=== PATIENT | female | born 1990 | race Caucasian/White ===

== ENCOUNTER 2017-02-26 23:21 | Outpatient (CLI) | payer MEDICAID ==
[~2017-02-26] VITALS: Ht 165.1 cm; Wt 70.0 kg
[~2017-02-26 23:21] MED LIST: AUGMENTIN 875-1 EACH PO; BACTRIM DS 8001 TA1 PO; BACTRIM DS 8001 TAB PO; BACTROBAN2% TP; BENADRYL25 M1 PO; BENTYL10 M1 PO; BENTYL10 MG PO; CLINDAMYCIN HC300 MG PO; CLINDAMYCIN300 MG PO; CORTISPORIN (GE10 M1 OT; FLEXERIL10 MG PO; HYDROXYZINE PAM50 MG PO; IBU-8800 MG PO; IBUPROFEN800 MG PO; MACROBID 100MG100 MG PO; MACROBID100 M3 PO; MEDROL 4MG. DOSE4 MG PO; MIRTAZAPINE15 M1 PO; NAPROSYN 500MG500 MG PO; NITROFURANTOIN100 M2 PO; NOMEDS; NOMEDS XX; OXYCODONE5 MG PO; PHENERGAN25 M3 PO; PRENATAL PLUS1 TA1 PO; PYRIDIUM 200MG200 MG PO; PYRIDIUM100 M1 PO; PYRIDIUM100 MG PO; SEPTRA DS 800 M1 TAB PO; SULFAMETHOXAZOL1 TA6 PO; TAMIFLU75 MG PO; TRAMADOL 50MG T50 MG PO; TYLENOL W/CODEI1 TA2 PO; ULTRACET 325 MG1 TAB PO; VIBRAMYCIN 100100 MG PO; VOLTAREN75 MG PO; ZANTAC 300300 MG PO
[2017-02-27 00:03] VITALS: BP 119/65
[2017-02-27 00:19] LABS: URINE BILIRUBIN - DIPSTICK NEGATIVE (NEG); URINE BLOOD 3+ (NEG)
[2017-02-27 00:21] LABS: URINE SQUAMOUS CELLS 50-100 #/hpf (0-5)
== END 2017-02-27 01:08 | disposition home or self-care (01) ==
LOC: OB 23:21 → OBOUT 23:21 → OB 23:29 → OBOUT 02-27 01:08
PROVIDERS: Obstetrics & Gynecology
DX: O26.92 Pregnancy related conditions, unspecified, second trimester (principal); Z3A.27 27 weeks gestation of pregnancy; N89.8 Other specified noninflammatory disorders of vagina

== ENCOUNTER 2017-03-19 13:41 | Emergency (ER) | payer MEDICAID ==
[~2017-03-19] VITALS: Ht 154.9 cm; Wt 69.9 kg
--- NOTE | 2017-03-19 14:53 | Emergency Room Report ---
History of Present Illness Time Seen by MD Moya Presenting Problem in Triage Pt arrived:Walked Presenting Problem:PT REPORTS MIGRAINE AND NOSE BLEEDS SINCE YESTERDAY. PT STATES NOSE BLEED HAS BEEN INTERMITTENT SINCE YESTERDAY. PT STATES HAS HAD BLOOD CLOTS COME OUT OF NOSTRILS. 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 N Clinical Suspician of Infection? N Mental Status: 1 - Regular (Normal Baseline) Sepsis Risk:Low Sepsis Risk Have you (or family members/close friends) recently traveled outside the [place]? N If Yes, where/when: Have you had exposure to infectious disease within the past month? N TB? Other? Specify: Source patient, RN notes reviewed Exam Limitations no limitations Comment Pt is 7months with her first and comes to the ED now with complaints of a migraine ELLIOTT for the past 3 days and a nose bleed from both nostrils bor the past 24hours. She says she has passed some clots through the right nostril and complains of pain in her ears as well. She has a history of Heroin abuse but says she has been clean for over a year now. She still smokes 1/2 ppd and denies ETOH use. VSare normal but NC=574/71 Cardiac Chest Pain Chest pain indicative of cardiac No ALLERGIES Coded Allergies: cefaclor (02/07/16) hydrocodone (02/07/16) Home Medications Reported Medications VIT#96/FERROUS FUM/FA ( Tablet) 1 TAB PO DAILY #30 History Medical History General CAD? No Angina: No SC: No Hypertension? No Hyperlipidemia? No CHF? No DVT? No PE? No COPD? No Asthma? No Anemia? No GERD? No Gastric ulcers? No GI Bleed? No Hernia? No Thyroid Problems? No Hypothyroidism? No CVA? No Seizures? No Diabetes? No Renal Insuffiency? No End Stage Renal Disease? No UTI? No Stones? No BPH? No GB Disease: Yes Nephritic Syndrome? No Asplenia? No Hepatitis? Yes Sickle Cell Disease? No Arthritis? No Migraines? No Cataracts? No Glaucoma? No MRSA? No HIV? No TB? No Anxiety? No Depression? No Cancer? No More? 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 Respiratory denies no symptoms reported Cardiovascular denies no symptoms reported Psychiatric/Neurological headache Physical Exam Vital Signs Vital Signs Date Time Temp Pulse Resp B/P Pulse O2 O2 Flow FiO2 Ox Delivery Rate 03/19 1457 86 14 106/72 96 03/19 1350 97.8 93 18 145/71 97 General Appearance normal appearance, WD/WN, no apparent distress Ear, Nose, Throat both nares are red with bleeding from the anterior nose on the left side. I do not see any bleeding on the right side but she says that has been the side she has passed clots from. I do not see any blood down the back of the throat either. Both ear canals are red and excoriated but the TM's ar normal Respiratory Status No: respiratory distress. Cardiovascular normal exam, regular rate/rhythm Nurse present during exam? 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 No Results/Orders Laboratory Tests 03/19/17 1559: Urine Color YELLOW, Urine Appearance CLOUDY, Urine pH 6.5, Ur Specific [place] < = 1.005, Urine Protein TRACE H, Urine Ketones NEGATIVE, Urine Blood 2+ H, Urine Nitrate NEGATIVE, Urine Bilirubin NEGATIVE, Urine Urobilinogen 0.2, Ur Leukocyte Esterase TRACE H, Urine RBC 5-10, Urine WBC 5-10, Ur Squamous Epith Cells 20-50, Urine Bacteria 2+, Urine Glucose NEGATIVE 03/19/17 1523: Sodium 137, Potassium 3.5, Chloride 105, Carbon Dioxide 24, BUN 8, Creatinine 0.5 L, Estimated Creat Clear 191, Estimated GFR (MDRD) 152, Glucose 104, Calcium 8.3 L, Total Bilirubin 0.3, AST 16, ALT 18, Alkaline Phosphatase 112, Total Protein 6.2 L, Albumin 2.3 L, Globulin 3.9 H, Albumin/Globulin Ratio 0.6 L, PT 9.4, INR 0.87 L, APTT 28.1, WBC 7.7, RBC 3.56 L, Hgb 10.9 L, Hct 32.2 L, MCV 90.4, RDW 13.6, Plt Count 193, MPV 8.7, Gran % 67.6, Gran # 5.2, Lymphocytes % 25.7, Monocytes % 5.1, Eosinophils % 1.3, Basophils % 0.2, Lymphocytes # 2.0, Monocytes # 0.4, Eosinophils # 0.1, Basophils # 0.0, PUBS MCHC 34.0, MCH 30.7 Current Medication Orders Sig/Ángel Start time Last Medication Dose Route Stop Time Status Admin Amoxicillin 500 MG ONCE ONE 03/19 151 DCr 03/19 PO 03/19 151 151 Promethazine HCl 25 MG ONCE ONE 03/19 151 DC 03/19 PO 03/19 151 1516 Promethazine HCl 0 .STK-MED ONE 03/19 151 DC PO Amoxicillin 0 .STK-MED ONE 03/19 151 DCr PO Orders Procedure Date/time Status CULTURE, URINE 03/19 155 Active URINALYSIS/COMPLETE 03/19 1511 Complete PROTIME/PARTIAL PROTIME 03/19 1511 Complete CBC WITH AUTO DIFF 03/19 1511 Complete CHEM 12 PROFILE 03/19 1511 Complete Departure Departure Time of Disposition 1634 Disposition DC Home or Self Care(routine) Clinical Impression Primary Impression: Epistaxis Secondary Impressions: Hypoalbuminemia Normal intrauterine in third trimester Sinusitis Qualifiers: Sinusitis location: maxillary Chronicity: acute Recurrence: not specified as recurrent Qualified Code: J01.00 - Acute maxillary sinusitis, unspecified Condition STABLE Referrals Colby CRUZ,Hernandez Garza Patient Instructions DI for Sinusitis, Sinusitis, Sinusitis (Alternative Therapy ) Additional Instructions Use medicines as directed and followup with Dr. Farr for further evaluation of headache and Discharge Counseling Counseled pt/family regarding diagnosis, test results, medications/RX, home care, follow up needs Prescriptions Current Visit Scripts MUPIROCIN 2% (Bactroban Oint) 1 GM TP DAILY #1 TUBE Amoxicillin (Amoxicillin 500MG) 500 MG PO TID #30 CAP ED Critical Care Critical Care No If Critical Care minutes are documented, the time involved in the performance of seperately reportable procedures was not counted toward critical care time documented. I directly delivered medical care to this critically ill and/or injured patient. Timely evaluation and treatment was necessary to address the significant organ system(s) dysfunction present in this patient. at [id number]
--- NOTE | 2017-03-19 14:53 | Emergency Room Report ---
History of Present Illness Time Seen by MD Moya Presenting Problem in Triage Pt arrived:Walked Presenting Problem:PT REPORTS MIGRAINE AND NOSE BLEEDS SINCE YESTERDAY. PT STATES NOSE BLEED HAS BEEN INTERMITTENT SINCE YESTERDAY. PT STATES HAS HAD BLOOD CLOTS COME OUT OF NOSTRILS. 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 N Clinical Suspician of Infection? N Mental Status: 1 - Regular (Normal Baseline) Sepsis Risk:Low Sepsis Risk Have you (or family members/close friends) recently traveled outside the [place]? N If Yes, where/when: Have you had exposure to infectious disease within the past month? N TB? Other? Specify: Source patient, RN notes reviewed Exam Limitations no limitations Comment Pt is 7months with her first and comes to the ED now with complaints of a migraine ELLIOTT for the past 3 days and a nose bleed from both nostrils bor the past 24hours. She says she has passed some clots through the right nostril and complains of pain in her ears as well. She has a history of Heroin abuse but says she has been clean for over a year now. She still smokes 1/2 ppd and denies ETOH use. VSare normal but II=603/71 Cardiac Chest Pain Chest pain indicative of cardiac No ALLERGIES Coded Allergies: cefaclor (02/07/16) hydrocodone (02/07/16) Home Medications Reported Medications VIT#96/FERROUS FUM/FA ( Tablet) 1 TAB PO DAILY #30 History Medical History General CAD? No Angina: No VT: No Hypertension? No Hyperlipidemia? No CHF? No DVT? No PE? No COPD? No Asthma? No Anemia? No GERD? No Gastric ulcers? No GI Bleed? No Hernia? No Thyroid Problems? No Hypothyroidism? No CVA? No Seizures? No Diabetes? No Renal Insuffiency? No End Stage Renal Disease? No UTI? No Stones? No BPH? No GB Disease: Yes Nephritic Syndrome? No Asplenia? No Hepatitis? Yes Sickle Cell Disease? No Arthritis? No Migraines? No Cataracts? No Glaucoma? No MRSA? No HIV? No TB? No Anxiety? No Depression? No Cancer? No More? 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 Respiratory denies no symptoms reported Cardiovascular denies no symptoms reported Psychiatric/Neurological headache Physical Exam Vital Signs Vital Signs Date Time Temp Pulse Resp B/P Pulse O2 O2 Flow FiO2 Ox Delivery Rate 03/19 1457 86 14 106/72 96 03/19 1350 97.8 93 18 145/71 97 General Appearance normal appearance, WD/WN, no apparent distress Ear, Nose, Throat both nares are red with bleeding from the anterior nose on the left side. I do not see any bleeding on the right side but she says that has been the side she has passed clots from. I do not see any blood down the back of the throat either. Both ear canals are red and excoriated but the TM's ar normal Respiratory Status No: respiratory distress. Cardiovascular normal exam, regular rate/rhythm Nurse present during exam? 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 No Results/Orders Laboratory Tests 03/19/17 1559: Urine Color YELLOW, Urine Appearance CLOUDY, Urine pH 6.5, Ur Specific [place] < = 1.005, Urine Protein TRACE H, Urine Ketones NEGATIVE, Urine Blood 2+ H, Urine Nitrate NEGATIVE, Urine Bilirubin NEGATIVE, Urine Urobilinogen 0.2, Ur Leukocyte Esterase TRACE H, Urine RBC 5-10, Urine WBC 5-10, Ur Squamous Epith Cells 20-50, Urine Bacteria 2+, Urine Glucose NEGATIVE 03/19/17 1523: Sodium 137, Potassium 3.5, Chloride 105, Carbon Dioxide 24, BUN 8, Creatinine 0.5 L, Estimated Creat Clear 191, Estimated GFR (MDRD) 152, Glucose 104, Calcium 8.3 L, Total Bilirubin 0.3, AST 16, ALT 18, Alkaline Phosphatase 112, Total Protein 6.2 L, Albumin 2.3 L, Globulin 3.9 H, Albumin/Globulin Ratio 0.6 L, PT 9.4, INR 0.87 L, APTT 28.1, WBC 7.7, RBC 3.56 L, Hgb 10.9 L, Hct 32.2 L, MCV 90.4, RDW 13.6, Plt Count 193, MPV 8.7, Gran % 67.6, Gran # 5.2, Lymphocytes % 25.7, Monocytes % 5.1, Eosinophils % 1.3, Basophils % 0.2, Lymphocytes # 2.0, Monocytes # 0.4, Eosinophils # 0.1, Basophils # 0.0, PUBS MCHC 34.0, MCH 30.7 Current Medication Orders Sig/Ángel Start time Last Medication Dose Route Stop Time Status Admin Amoxicillin 500 MG ONCE ONE 03/19 151 DCr 03/19 PO 03/19 151 151 Promethazine HCl 25 MG ONCE ONE 03/19 151 DC 03/19 PO 03/19 151 1516 Promethazine HCl 0 .STK-MED ONE 03/19 151 DC PO Amoxicillin 0 .STK-MED ONE 03/19 151 DCr PO Orders Procedure Date/time Status CULTURE, URINE 03/19 155 Active URINALYSIS/COMPLETE 03/19 1511 Complete PROTIME/PARTIAL PROTIME 03/19 1511 Complete CBC WITH AUTO DIFF 03/19 1511 Complete CHEM 12 PROFILE 03/19 1511 Complete Departure Departure Time of Disposition 1634 Disposition DC Home or Self Care(routine) Clinical Impression Primary Impression: Epistaxis Secondary Impressions: Hypoalbuminemia Normal intrauterine in third trimester Sinusitis Qualifiers: Sinusitis location: maxillary Chronicity: acute Recurrence: not specified as recurrent Qualified Code: J01.00 - Acute maxillary sinusitis, unspecified Condition STABLE Referrals Colby CRUZ,Hernandez Garza Patient Instructions DI for Sinusitis, Sinusitis, Sinusitis (Alternative Therapy ) Additional Instructions Use medicines as directed and followup with Dr. Farr for further evaluation of headache and Discharge Counseling Counseled pt/family regarding diagnosis, test results, medications/RX, home care, follow up needs Prescriptions Current Visit Scripts MUPIROCIN 2% (Bactroban Oint) 1 GM TP DAILY #1 TUBE Amoxicillin (Amoxicillin 500MG) 500 MG PO TID #30 CAP ED Critical Care Critical Care No If Critical Care minutes are documented, the time involved in the performance of seperately reportable procedures was not counted toward critical care time documented. I directly delivered medical care to this critically ill and/or injured patient. Timely evaluation and treatment was necessary to address the significant organ system(s) dysfunction present in this patient. at 8507
[2017-03-19 15:43] LABS: LYMPH % 25.7 % (10-50.0)
[2017-03-19 15:44] LABS: HEMOGLOBIN 10.9 g/dL (12.2-16.2)
[2017-03-19 16:03] LABS: URINE BILIRUBIN - DIPSTICK NEGATIVE (NEG); URINE BLOOD 2+ (NEG)
[2017-03-19 16:13] LABS: URINE SQUAMOUS CELLS 20-50 #/hpf (0-5)
[2017-03-19 16:41] VITALS: BP 122/76
--- OUTSIDE RECORDS SUMMARY | 2017-03-29 21:55 | External Medical Summary Rpt ---
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 18:40 Manual MEAN 2 7.2 fl 7.4-10. complet PLATELE 013 4 ed T 18:40 VOLUME Granulo 05-30-2 51.0 % 37.0-80 complet cytes 013 .0 ed Fr Bld 18:40 Auto LYMPH % 12-2 39.6 % 10-50.0 complet 013 ed 18:40 Monocyt 12-2 6.8 % 1.7-9.3 complet es Fr 013 ed Bld 18:40 Auto Eosinop -12-2 2.2 % 0.1-12. complet hil Fr 013 0 ed Bld 18:40 Auto Basophi -12-2 0.3 % 0.1-2.0 complet ls Fr 013 ed Bld 18:40 Auto Granulo 12-12-2 3.8 1.8-7.8 complet cytes # 013 K/mm3 ed Bld 18:40 Auto Lymphoc -12-2 3.0 0.7-4.5 complet ytes Fr 013 K/mm3 ed Bld 18:40 Auto Monocyt 12-12-2 0.5 0.1-1.0 complet es # 013 K/mm3 ed Bld 18:40 Auto Eosinop 12-12-2 0.2 0.0-0.4 complet hil # 013 K/mm3 ed Bld 18:40 Auto Basophi 12-12-2 0.0 0-0.2 complet ls # 013 K/MM3 ed Bld 18:40 Auto B-HCG Ur Ql (05-30-2013 17:50) B-HCG 12-12-2 POSITIV NEG complet Ur Ql 013 E ed 17:50 URINALYSIS/COMPLETE (05-30-2013 17:50) URINE 12-12-2 YELLOW YELLOW complet COLOR 013 ed 17:50 URINE 12-12-2 CLEAR CLEAR complet APPEARA 013 ed NCE 17:50 URINE 12-12-2 NEGATIV NEG complet GLUCOSE 013 E ed - 17:50 DIPSTIC K URINE 12-12-2 NEGATIV NEG complet BILIRUB 013 E ed IN - 17:50 DIPSTIC K URINE 12-12-2 NEGATIV NEG complet KETONE 013 E mg/dL ed 17:50 URINE 12-12-2 1.025 1.005-1 complet SPECIFI 013 UNK .030 ed C 17:50 GRAVITY URINE 12-12-2 NEGATIV NEG complet BLOOD 013 E ed 17:50 URINE 12-12-2 6.5 UNK 5.0-8.5 complet PH 013 ed 17:50 URINE 12-12-2 NEGATIV NEG complet PROTEIN 013 E mg/dL ed - 17:50 DIPSTIC K URINE 12-12-2 0.2 NEG complet UROBILI 013 E.U./dL ed NOGEN - 17:50 DIPSTIC K URINE 12-12-2 NEGATIV NEG complet NITRATE 013 E ed - 17:50 DIPSTIC K URINE 12-12-2 3+ NEG complet LEUK 013 ed ESTERAS 17:50 E URINE 12-12-2 3-5 0 complet RBC 013 rbc/hpf ed 17:50 URINE 12-12-2 20-50 O complet WBC 013 wbc/hpf ed 17:50 URINE 12-12-2 10-20 0-5 complet SQUAMOU 013 #/hpf ed S CELLS 17:50 URINE 12-12-2 3+ O complet BACTERI 013 ed A 17:50 CHLAMYDIA AND GONORRHEA TESTING (01-15-2013 11:00) Chlamyd POSITIV complet ia 013 E ed trachom 11:00 atis rRNA [Presen ce] in Unspeci fied specime n by Probe & target amplifi cation method Neisser NEGATIV complet ia 013 E ed gonorrh 11:00 oeae rRNA [Presen ce] in Unspeci fied specime n by Probe & target amplifi cation method CHLAMYDIA AND GONORRHEA TESTING (01-15-2013 11:00) COLLECT PATIENT complet OR 013 /J.MOSL ed 11:00 EY RN ETHNICI WHITE, complet TY 013 NON-HIS ed 11:00 PANIC KIT complet EXPIRAT 013 013 ed ION 11:00 DATE SYMPTOM NO complet S 013 ed 11:00 REASON REVISIT complet FOR 013 /ANNUAL ed REQUEST 11:00 FAMILY PLANNIN G VISIT SPECIME URINE complet N 013 ed SOURCE 11:00 PREGNAN NO complet T 013 ed 11:00 CHART NA complet NUMBER 013 ed 11:00 Chlamyd Pending complet ia ed trachom 11:00 atis rRNA [Presen ce] in Unspeci fied specime n by Probe & target amplifi cation method Neisser Pending complet ia 013 ed gonorrh 11:00 oeae rRNA [Presen ce] in Unspeci fied specime n by Probe & target amplifi cation method B-HCG Ur Ql (08-08-2012 20:45) B-HCG 2 NEGATIV NEG complet Ur Ql 013 E ed 20:45 URINALYSIS/COMPLETE (08-08-2012 20:45) URINE YELLOW YELLOW complet COLOR 013 ed 20:45 URINE 08-08-2 CLEAR CLEAR complet APPEARA 013 ed NCE 20:45 URINE 08-08-2 NEGATIV NEG complet GLUCOSE 013 E ed - 20:45 DIPSTIC K URINE 08-08-2 NEGATIV NEG complet BILIRUB 013 E ed IN - 20:45 DIPSTIC K URINE 08-08-2 NEGATIV NEG complet KETONE 013 E mg/dL ed 20:45 URINE 08-08-2 1.015 1.005-1 complet SPECIFI 013 UNK .030 ed C 20:45 GRAVITY URINE 08-08-2 NEGATIV NEG complet BLOOD 013 E ed 20:45 URINE 08-08-2 7.5 UNK 5.0-8.5 complet PH 013 ed 20:45 URINE 08-08-2 NEGATIV NEG complet PROTEIN 013 E mg/dL ed - 20:45 DIPSTIC K URINE 08-08-2 4.0 NEG complet UROBILI 013 E.U./dL ed NOGEN - 20:45 DIPSTIC K URINE 02-20-2 NEGATIV NEG complet NITRATE 013 E ed - 20:45 DIPSTIC K URINE 02-20-2 2+ NEG complet LEUK 013 ed ESTERAS 20:45 E URINE 02-20-2 3-5 0 complet RBC 013 rbc/hpf ed 20:45 URINE 02-20-2 5-10 O complet WBC 013 wbc/hpf ed 20:45 URINE 02-20-2 5-10 0-5 complet SQUAMOU 013 #/hpf ed S CELLS 20:45 URINE 02-20-2 3+ O complet BACTERI 013 ed A 20:45 URINE 02-20-2 OCC OCC complet MUCUS 013 ed 20:45 CHLAMYDIA AND GONORRHEA TESTING (01-31-2012 16:00) Chlamyd NEGATIV complet ia 012 E ed trachom 16:00 atis rRNA [Presen ce] in Unspeci fied specime n by Probe & target amplifi cation method Neisser NEGATIV complet ia 012 E ed gonorrh 16:00 oeae rRNA [Presen ce] in Unspeci fied specime n by Probe & target amplifi cation method CHLAMYDIA AND GONORRHEA TESTING (01-31-2012 16:00) COLLECT NA complet OR 012 ed 16:00 ETHNICI WHITE, complet TY 012 NON-HIS ed 16:00 PANIC KIT 3013 complet EXPIRAT 012 ed ION 16:00 DATE SYMPTOM NO complet S 012 ed 16:00 REASON REVISIT complet FOR 012 /ANNUAL ed REQUEST 16:00 FAMILY PLANNIN G VISIT SPECIME URINE complet N 012 ed SOURCE 16:00 PREGNAN NO complet T 012 ed 16:00 CHART 402-45- complet NUMBER 012 8200 ed 16:00 Chlamyd Pending complet ia 012 ed trachom 16:00 atis rRNA [Presen ce] in Unspeci fied specime n by Probe & target amplifi cation method Neisser Pending complet ia 012 ed gonorrh 16:00 oeae rRNA [Presen ce] in Unspeci fied specime n by Probe & target amplifi cation method Procedures Procedure DOS Code Location Performer Comment [place] PREG 86150 [facility] W/DETAIL INC INC EBONI 1ST GESTATION US PREG 36214 [facility] UTERUS 7 MEDICAL AFTER 1ST IMAGING TRIMEST ASS GESTATION DRUG TEST 71445 [facility] BERMUDE[facility] PRSMV 7 PHYSICIAN QUAL DIR S GROUP OPTICAL OBS PER DAY DRUG TEST 10865 [facility] PRSMV 7 PHYSICIAN QUAL DIR S GROUP OPTICAL OBS PER DAY DRUG TEST 48379 [facility] BER[facility] PRSMV 7 PHYSICIAN QUAL DIR S GROUP OPTICAL OBS PER DAY CYTP 53640 [facility] CERV[facility]/ 7 [facility] VAGINAL REQ INTERP PHYSICIAN CYTP C/V 53451 [facility] AUTO THIN 7 LLC LYR PREPJ SCR MNL RESCR PHYS US PREG 42049 [facility] UTERUS 7 MEDICAL REAL TIME IMAGING W/[place] [address] [facility] TRANSVAGI 7 [facility] NAL INC INC URNLS DIP 60218 [facility] 7 [facility] STICK/TAB INC INC LET REAGENT AUTO MICROSCOP Y CULTURE 05341 [facility] BACTERIAL 7 [facility] INC INC QUANTTATI VE COLONY COUNT URINE URINE 14519 [facility] 7 [facility] TEST INC INC VISUAL COLOR CMPRSN METHS US PREG 94237 [place] [facility] UTERUS 7 MEDICAL REAL TIME IMAGING W/IMAGE ASS DCMTN TRANSVAG URINE 50712 [facility] AIDAN 7 PHYSICIAN TEST S GROUP VISUAL COLOR CMPRSN METHS DRUG TEST 26987 [facility] BER[facility] PRSMV 7 PHYSICIAN QUAL DIR S GROUP OPTICAL OBS PER DAY URINE 06465 [facility] 7 [facility] TEST INC INC VISUAL COLOR CMPRSN METHS BLOOD 02357 [facility] COUNT 7 [facility] COMPLETE INC INC AUTO&AUTO DIFRNTL WBC GONADOTRO 52918 [facility] PIN 7 [facility] CHORIONIC INC INC QUANTITAT ERNESTINE URNLS DIP 32169 [facility] 7 [facility] STICK/TAB INC INC LET REAGENT AUTO MICROSCOP Y AMB A0427 [facility] SERVICE 6 [facility] EMERGENC[facility] EMS EMS TRANSPORT LEVEL 1 GROUND A0425 [facility] MILEAGE 6 [facility] STAT[facility] EMS EMS MILE BLOOD 22387 [facility] COUNT 6 [facility] COMPLETE INC INC AUTO&AUTO DIFRNTL WBC IRON 05332 [facility] BINDING 6 [facility] [place] [address] [facility] FERRITIN 6 [facility] INC INC COMPREHEN 83309 [facility] SIVE 6 [facility] [place] [address] [facility] IRON 6 [place] [address] [facility] FREE 6 [facility] [place] [address] [facility] THYROID 6 [facility] STIMULATI INC INC NG HORMONE TSH IADNA 01107 [facility] DEPT [facility] DEPT GONORRHOE SERGEY SERGEY AE AMPLIFIED PROBE TQ CONTRACEP A4269 [facility] TIVE [facility] SUPPLY [facility] DEPT [facility] DEPT SPERMICID SERGEY SERGEY E EACH URINE 06746 [facility] TEST TH DEPT TH DEPT VISUAL SERGEY SERGEY COLOR CMPRSN METHS IADNA 21941 [facility] CHLAMYDIA [facility] TH DEPT TH DEPT TRACHOMAT SERGEY SERGEY IS AMPLIFIED PROBE TQ CONTRACEP A4267 [facility] TIVE 6 [facility] SUPPLY [facility] DEPT [facility] DEPT CONDOM SERGEY SERGEY MALE EACH CONTRACEP S4993 [facility] TIVE [facility] DE[facility] DEPT SERGEY SERGEY CONTROL ECG 23104 [facility] ROUTINE 6 [facility] ECG INC INC W/LEAST 12 LDS TRCG ONLY W/O I&R THER 25572 [facility] PROPH/DX 6 [facility] NJX IV INC INC PUSH SINGLE/1S T SBST/DRUG ECG 45251 [facility] FLOREZ ROUTINE 6 [facility] W/LEAST P 12 LDS I&R ONLY THERAPEUT 62875 [facility] IC 6 [facility] INJECTION INC [place] [address] [facility] TROPONIN 6 [facility] QUANTITAT INC INC ERNESTINE RADIOLOGI 53065 [place] [facility] ALL C EXAM 6 MEDICAL CHEST 2 IMAGING VIEWS ASS FRONTAL&L ATERAL BLOOD 45957 [facility] COUNT 6 [facility] COMPLETE INC INC AUTO&AUTO DIFRNTL WBC CREATINE 02131 [facility] KINASE 6 [facility] TOTAL INC INC COMPREHEN 20539 [facility] SIVE 6 [facility] METABOLIC INC INC PANEL CREATINE 93580 [facility] KINASE MB 6 [facility] FRACTION INC INC ONLY ECG 81211 TON[facility] SILVERIO ROUTINE 6 [facility] ECG SERV W/LEAST FOUNDATIO 12 LDS N I&R ONLY RADIOLOGI 49119 [facility] EXAM 6 Y OF CHEST 2 [place] VIEWS I PHY FRONTAL&L ATERAL LAPAROSCO 17475 [facility] PY SURG 5 R JERILYN R JERILYN CHOLECYST ECTOMY ANES 08002 [place] [facility] ANT INTRAPERI 5 ANESTHESI TONEAL A GROUP UPPER PS ABDOMEN W/LAPS NOS LEVEL III 75003 [facility] MY[facility] SURG 5 [facility] PATHOLOGY GROSS&[place] [address] [facility] AMYLASE 5 [facility] INC INC INJECTION J2405 [facility] 5 [facility] ONDANSETR INC INC ON HCL PER 1 MG COMPREHEN 59525 [facility] SIVE 5 [facility] METABOLIC INC INC PANEL BLOOD 42893 [facility] COUNT 5 [facility] COMPLETE INC INC AUTO&[place] [address] [facility] LIPASE 5 [place] [address] [facility] INFUSION 5 [facility] THERAPY/P INC INC ROPHYLAXI S /DX 1ST TO 1 HR THERAPEUT 71576 [facility] IC 5 [facility] INJECTION [place] [address] RU[facility] ABDOMINAL 5 [facility] REAL INC INC TIME W/IMAGE LIMITED RADIOLOGI 25181 [facility] EX[facility] 5 MEDICAL MOJGAN CHEST 2 IMAGING VIEWS ASS FRONTAL&L ATERAL RADIOLOGI 04702 [place] [facility] C EXAM 5 MEDICAL CE CHEST 2 IMAGING VIEWS ASS FRONTAL&[place] [address] [facility] BERMUDEZ TRANSVAGI 4 [place] [address] [facility], KARINA SURG 4 [facility] ALL[facility] PATHOLOGY GROSS&CHASE ROSCOPIC EXAM [place] PREG 85978 [facility] UTERUS 4 JOSÉ JOSÉ REAL TIME W/IMAGE DCMTN TRANSVAG CYTP 33408 [facility] MYERS CERVICAL/ 4 JUAN JUAN VAGINAL REQ INTERP PHYSICIAN CYTP C/V 11131 [facility] AUTO THIN 4 JUAN JUAN LYR PREPJ SCR MNL RESCR PHYS IADNA 88016 [facility] CHLAMYDIA 4 JUAN JUAN TRACHOMAT IS AMPLIFIED PROBE TQ URINE 21579 [facility] B[facility] 4 JOSÉ JOSÉ TEST VISUAL COLOR CMPRSN METHS IADNA 29101 [facility] NEISSERIA 4 JUAN JUAN GONORRHOE AE AMPLIFIED PROBE TQ RADEX 85370 [facility] HAND 1 [facility] MINIMUM 3 INC INC VIEWS URINE 21264 [facility] 1 [employer] [facility] C[facility] CENTER VISUAL COLOR CMPRSN METHS DME A9900 [facility] SUP/ACCES 1 [facility] S/SRV-COM [facility] ZIYAD/OTH HCPCS CONTRACEP S4993 [facility] TIVE 1 [facility] CONTROL CONTRACEP A4267 [facility] TIVE 1 [facility] SUPPLY CENTER CENTER CONDOM MALE EACH URINE 12695 [facility] YEH 1 [facility] HE[facility] TEST CENTER CENTER VISUAL COLOR CMPRSN METHS URINE 99332 [facility] LOPEZ 1 [facility] SO DIDI TEST INC VISUAL COLOR CMPRSN METHS RADIOLOGI 28186 [facility] C EXAM 1 [facility] CHEST 2 INC INC VIEWS FRONTAL&L ATERAL URNLS DIP 22190 [facility] 1 [facility] STICK/TAB INC INC LET REAGENT AUTO MICROSCOP Y CULTURE 69746 [facility] LOPEZ BACTERIAL 1 [facility] SO DIDI INC QUANTTATI VE COLONY COUNT URINE RADEX 00842 [facility] WRIST 1 [facility] COMPLETE INC INC MINIMUM 3 VIEWS URINE 08375 [facility]H 1 [facility] TEST INC INC VISUAL COLOR CMPRSN METHS RADEX 66760 [facility] SHOULDER 1 [facility] COMPLETE INC INC MINIMUM 2 VIEWS BLOOD 39694 [facility] COUNT 1 [facility] COMPLETE INC INC AUTO&AUTO DIFRNTL WBC URINE 65990 [facility]H 1 [facility] TEST INC INC VISUAL COLOR CMPRSN METHS RADIOLOGI 58721 [facility] C EXAM 1 [facility] CHEST 2 INC INC VIEWS FRONTAL&L ATERAL FIBRIN 10177 [facility] DGRADJ 1 [facility] PRODUCTS INC INC D-DIMER QUAL/SEMI DOMITILA IAADI 21189 [facility] INFLUENZA 1 [facility] B VIRUS INC INC IAADI 61395 [facility]H INFFLUENZ 1 [facility] A A VIRUS INC INC COMPREHEN 66486 [facility] SIVE 1 [facility] METABOLIC INC INC PANEL ANTIBODY 64297 LAB ALYSSA LAB ALYSSA BORRELIA 0 [facility] [employer] [employer] LYME DISEASE BLOOD 15574 LAB ALYSSA LAB ALYSSA COUNT 0 [employer] [employer] COMPLETE [employer]ING AUTO&AUTO DIFRNTL WBC URINE 16050 [facility] 0 [facility] TEST INC INC VISUAL COLOR CMPRSN METHS RADIOLOGI 24104 [facility] C EXAM 0 [facility] CHEST 2 INC INC VIEWS FRONTAL&L ATERAL ECG 62217 [facility] SMITH [facility] W/LEAST P 12 LDS I&R ONLY ECG 29345 [facility] ROUTINE 0 [facility] ECG INC INC W/LEAST 12 LDS TRCG ONLY W/O I&R CYTP 52814 PATHOLOGY PATHOLOGY CERV/VAG 9 & & AUTO THIN CYTOLOGY CYTOLOGY LAYER LAB LAB PREP MNL SCREEN CYTP 10475 PATHOLOGY PATHOLOGY CERVICAL/ 9 & & VAGINAL CYTOLOGY CYTOLOGY REQ LAB LAB INTERP PHYSICIAN Encounters Encounter Start End Date Code Location Performer Type Date OFFICE 65356 [facility] A[facility]AN MAJOREN 7 7 PHYSICIAN T VISIT S GROUP 15 MINUTES HOSPITAL RUBA - 7 7 [facility] OUTPATIEN INC T OFFICE 04711 [facility] A[facility] MARSHALL 7 7 PHYSICIAN T VISIT S GROUP 15 MINUTES EMERGENCY 60534 [facility] 7 7 PAULA DEPARTMEN EMERGENCY T VISIT PHYS MODERATE SEVERITY OFFICE 61029 [facility] [place] 7 7 PHYSICIAN T VISIT S GROUP 15 MINUTES OFFICE 47668 [facility] 7 7 [facility] T VISIT 5 INC MINUTES OFFICE 51582 RIK MAJOREN 7 7 PHYSICIAN T VISIT S, PLLC 25 MINUTES HOSPITAL RUBA - 7 7 [facility] OUTPATIEN INC T OFFICE 38261 [facility] A[facility] MAJOREN 7 7 PHYSICIAN T VISIT S GROUP 15 MINUTES EMERGENCY 34465 [facility] 7 7 [facility] DEPARTMEN INC T VISIT LOW/MODER SEVERITY EMERGENCY 78471 RIK BECKER 7 7 PHYSICIAN DEPARTMEN S, PLLC T VISIT HIGH/URGE NT SEVERITY HOSPITAL RUBA - 7 7 [facility] OUTPATIEN INC T HOSPITAL RUBA - 7 7 [facility] OUTPATIEN INC T OFFICE 58084 [facility] BERMUDEZ OUTPATIEN 7 7 PHYSICIAN T VISIT S GROUP 25 MINUTES OFFICE 57898 [facility] STONE OUTPATIEN 7 7 PHYSICIAN T VISIT S GROUP 15 MINUTES EMERGENCY 81470 RIK BARONE 7 7 PHYSICIAN [facility] HIGH/URGE NT SEVERITY HOSPITAL RUBA - 7 7 [facility] OUTPATIEN INC T EMERGENCY 49764 RUBA 7 7 [facility] T VISIT LOW/MODER SEVERITY EMERGENCY 90029 [facility] 6 6 PAULA [facility] EMERGENCY T VISIT PHYS HIGH/URGE NT SEVERITY HOSPITAL RUBA - 6 6 [facility] OUTPATIEN INC T OFFICE 71512 [facility] T VISIT [facility] DEPT TH [facility]PT 10 [facility] RUBA - 6 6 [facility] OUTPATIEN INC T EMERGENCY 12599 RUBA 6 6 [facility] INC T VISIT HIGH/URGE NT SEVERITY EMERGENCY 03103 RIK PÉREZ DEPT 6 6 PHYSICIAN Anjali ULRICH VISIT S, [facility] HIGH SEVER[facility]& THREAT FUNCJ EMERGENCY 15879 RIK MARIN, 6 6 PHYSICIAN JR JAFFE [facility] S, [facility] T VISIT HIGH/URGE NT SEVERITY OFFICE 59899 [facility] 6 6 JUAN JUAN T NEW 30 MINUTES EMERGENCY 92059 [facility] [address] [facility] T VISIT I PHY MODERATE SEVERITY OFFICE 85169 W[facility] WIG[facility]KUMA CONSULTAT 5 5 R JERILYN R JERILYN ION NEW/ESTAB PATIENT 60 MIN OFFICE 84816 [facility] JEWEL OUTPATIEN 5 5 PHYSICIAN CHASE T VISIT S GROUP 15 MINUTES EMERGENCY 78688 RUBA 5 5 [facility] DEPARTMEN INC T VISIT HIGH/URGE NT SEVERITY HOSPITAL RUBA - 5 5 [facility] OUTPATIEN INC T OFFICE 75206 [facility] ALLTERRANCE OUTPATIEN 5 5 PHYSICIAN SADAF T NEW 45 S GROUP MINUTES HOSPITAL RUBA - 5 5 [facility] OUTPATIEN INC T EMERGENCY 06990 RIK BARONE 5 5 PHYSICIAN CHASE [facility], [facility] HIGH/URGE NT SEVERITY EMERGENCY 44519 RIK Quick 5 5 PHYSIC[facility] T VISIT HIGH/URGE NT SEVERITY OFFICE 58917 [facility] OUTPATIEN 4 4 JOSÉ JOSÉ T NEW 30 MINUTES Emergency TOOTIE Barone MD (ER) 4 01:34 4 02:54 [facility] EMERGENCY 31382 JEWEL BARONE DEPT 4 4 CHASE CHASE VISIT HIGH SEVERITY& THREAT FUNC OFFICE 67677 [facility] 3 3 [facility] T VISIT [facility] DEPT [facility] DEPT 15 SERGEY SERGEY MINUTES Emergency TOOTIE RAGLAND DO (ER) 3 17:53 3 20:19 [facility] EMERGENCY 01851 ELLYN SONALI ELLYN SONALI 3 3 DEPARTMEN T VISIT HIGH/URGE NT SEVERITY Emergency TOOTIE Baca (ER) 3 21:04 3 21:24 [facility] RUBA - 1 1 [facility] T EMERGENCY 39129 KARINA TANNER ROEL 1 1 EMERGENCY DEPARTMEN SERVICES T VISIT MODERATE SEVERITY EMERGENCY 30853 [facility] 1 1 [facility] T VISIT LOW/MODER SEVERITY OFFICE 64697 [facility] YEH OUTPATIEN 1 1 [facility] T VISIT CENTER CENTER 15 MINUTES OFFICE 82256 RUBA YEH OUTPATIEN 1 1 [facility] HE[facility] T NEW 10 CENTER CENTER MINUTES EMERGENCY 44988 RUBA 1 1 [facility] DEPARTMEN INC T VISIT LOW/MODER SEVERITY EMERGENCY 75087 KARINA TANNER ROEL 1 1 EMERGENCY DEPARTMEN SERVICES T VISIT HIGH/URGE NT SEVERITY HOSPITAL RUBA - 1 1 [facility] INC T EMERGENCY 46414 RUBA 1 1 [facility] DEPARTMEN INC T VISIT LOW/MODER SEVERITY EMERGENCY 12780 KARINA TANNER ROEL 1 1 EMERGENCY DEPARTMEN SERVICES T VISIT HIGH/URGE NT SEVERITY HOSPITAL RUBA - 1 1 [facility] RUBA - 1 1 [facility] INC T EMERGENCY 86374 RUBA 1 1 [facility] DEPARTMEN INC T VISIT LOW/MODER SEVERITY EMERGENCY 69198 KARINA BARONE 1 1 EMERGENCY CHASE DEPARTMEN SERVICES T VISIT HIGH/URGE NT SEVERITY HOSPITAL RUBA - 1 1 [facility] T EMERGENCY 93625 RUBA 1 1 [facility] DEPARTMEN INC T VISIT MODERATE SEVERITY OFFICE 15295 [facility] OUTPATIEN 0 0 [facility] 15 MINUTES OFFICE 97154 [facility] OUTPATIEN 0 0 [facility] 15 MINUTES OFFICE 14171 [facility] DANAY OUTPATIEN 0 0 [facility] T VIS[facility] 15 MINUTES HOSPITAL RUBA - 0 0 [facility] INC T EMERGENCY 67208 KARINA LEMA DEPT 0 0 EMERGENCY VISIT SERVICES HIGH SEVERITY& THREAT FUNCJ EMERGENCY 21296 RUBA 0 0 [facility] DEPARTMEN INC T VISIT LOW/MODER SEVERITY OFFICE 71201 [facility] PAY[facility] OUTPATIEN 0 0 [facility] FILI A T VISIT E CENTER 15 MINUTES OFFICE 25067 [facility] TIMUR OUTPATIEN 0 0 [facility] ROSALBA W T VISIT E CENTER 15 MINUTES EMERGENCY 01701 KARINA CADENA, 9 9 EMERGENCY [facility] W DEPARTMEN SERVICES T VISIT MODERATE ASSOCIATE SEVERITY S OFFICE 29851 PREM CERONPATIEN 8 8 [facility] KENNETH T VISIT E CENTER 15 MINUTES
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
--- OUTSIDE RECORDS SUMMARY | 2017-03-29 21:59 | External Medical Summary Rpt ---
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 PHYSICIAN SADAF T NEW 45 S GROUP MINUTES HOSPITAL RUBA - 5 5 [facility] OUTPATIEN INC T EMERGENCY 07950 RIK HOLLOWAY 5 5 PHYSICIAN CHASE DEPARTMEN S, [facility] T VISIT HIGH/URGE NT SEVERITY EMERGENCY 08167 RIK Quick 5 5 PHYSICIAN DEPARTMEN S, [facility] T VISIT HIGH/URGE NT SEVERITY OFFICE 02326 [facility] AIDAN OUTPATIEN 4 4 JOSÉ JOSÉ T NEW 30 MINUTES EMERGENCY 92532 JEWEL HOLLOWAY DEPT 4 4 CHASE CHASE VISIT HIGH SEVERITY& [facility] OFFICE 25231 [facility] T VISIT HLTH DEPT HLTH DEPT 15 SERGEY SERGEY MINUTES EMERGENCY 57085 ELLYN SONALI ELLYN SONALI 3 3 DEPARTMEN T VISIT HIGH/URGE NT SEVERITY HOSPITAL RUBA - 1 1 [facility] OUTPATIEN INC T EMERGENCY 19462 RUBA 1 1 [facility] DEPARTMEN INC T VISIT LOW/MODER SEVERITY EMERGENCY 45123 KARINA TANNER ROEL 1 1 EMERGENCY DEPARTMEN SERVICES T VISIT MODERATE SEVERITY OFFICE 42678 RUBA YEH OUTPATIEN 1 1 [facility] CENTER 15 MINUTES OFFICE 88457 RUBA YEH OUTPATIEN 1 1 [facility] T NEW 10 CENTER CENTER MINUTES EMERGENCY 40501 KARINA TANNER ROEL 1 1 EMERGENCY DEPARTMEN SERVICES T VISIT HIGH/URGE NT SEVERITY HOSPITAL RUBA - 1 1 [facility] OUTPATIEN INC T EMERGENCY 82858 RUBA 1 1 [facility] DEPARTMEN INC T VISIT LOW/MODER SEVERITY EMERGENCY 39188 [facility]BA 1 1 [facility] DEPARTMEN INC T VISIT LOW/MODER SEVERITY EMERGENCY 13852 KARINA TANNER ROEL 1 1 EMERGENCY DEPARTMEN SERVICES T VISIT HIGH/URGE NT SEVERITY HOSPITAL RUBA - 1 1 [facility] OUTPATIEN INC T EMERGENCY 02404 RUBA 1 1 [facility] DEPARTMEN INC T VISIT LOW/MODER SEVERITY HOSPITAL RUBA - 1 1 [facility] OUTPATIEN INC T EMERGENCY 95626 RUBA 1 1 [facility] DEPARTMEN INC T VISIT MODERATE SEVERITY HOSPITAL RUBA - 1 1 [facility] OUTPATI[facility] INC T EMERGENCY 16534 KARINA HOLLOWAY 1 1 EMERGENCY CHASE DEPARTMEN SERVICES T VISIT HIGH/URGE NT SEVERITY OFFICE 10763 [facility] GRAVES OUTPATIEN 0 0 [facility]ENTER 15 MINUTES OFFICE 01371 [facility] GRAVES OUTPATIEN 0 0 [facility] C[facility] 15 MINUTES OFFICE 20498 [facility] DANAY OUTPATIEN 0 0 [facility] NAVI T VISIT E CENTER 15 MINUTES EMERGENCY 89114 KARINA LEMA DEPT 0 0 EMERGENCY VISIT SERVICES HIGH SEVERITY& THREAT FUNCJ EMERGENCY 14048 RUBA 0 0 [facility] DEPARTMEN INC T VISIT LOW/MODER SEVERITY HOSPITAL RUBA - 0 0 [facility] OUTPATIEN INC T OFFICE 02438 [facility] PAYTON, OUTPATIEN 0 0 [facility] FILI [facility] T VISIT E CENTER 15 MINUTES OFFICE 35768 [facility] GRAVES, OUTPATIEN 0 0 [facility] ROSALBA W T VISIT E CENTER 15 MINUTES EMERGENCY 29894 KARINA CADENA, 9 9 EMERGENCY CHEPE W DEPARTMEN SERVICES T VISIT MODERATE ASSOCIATE SEVERITY S OFFICE 61980 [facility] CARTHEW, OUTPATIEN 8 8 [facility] KENNETH T VISIT E CENTER 15 MINUTES
--- OUTSIDE RECORDS SUMMARY | 2017-03-29 21:59 | External Medical Summary Rpt ---
Author Author , BERNARDO CHANG Address Unknown Phone [email or web address] Immunization Name Date Rout CVX Reac Dose Comm Prov Is Faci e tion ent ider Refu lity Give sed n HPV4 11-2 62 999 Hist H205 No H205 4-20 oric (Gar 09 al dasi Info l) rmat ion - Sour ce Unsp ecif ied Td 08-2 9 999 Hist H205 No H205 (ester 3-20 oric lt), 05 al Info adso rmat rbed ion - Sour ce Unsp ecif ied MMR 12-0 3 999 Hist H149 No H149 9-19 oric 96 al Info rmat ion - Sour ce Unsp ecif ied Akbar 12-0 2 999 Hist H149 No H149 o-OP 9-19 oric V 96 al Info rmat ion - Sour ce Unsp ecif ied DTaP 12-0 107 999 Hist H149 No H149 , UF 9-19 oric 96 al Info rmat ion - Sour ce Unsp ecif ied
--- OUTSIDE RECORDS SUMMARY | 2017-03-29 21:59 | External Medical Summary Rpt ---
Author Author , BERNARDO CHANG Address Unknown Phone [email or web address] Immunization Name Date Rout CVX Reac Dose [...]
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
--- OUTSIDE RECORDS SUMMARY | 2017-03-29 22:00 | External Medical Summary Rpt ---
Author Author JAYDAPETE [employer], [facility] [employer] Organization [facility] Address Unknown Phone Unavailable Results Comprehensive metabolic 2000 panel in Serum or Plasma Observa Value Referen Units Interpr Notes Date tion ce etation Range Albumin/G 1.1 - 1.8 No Low No Oct 1 lobulin informati informati 2017 3:23 [Mass on in on in PM ratio] in source source Serum or data data Plasma Albumin 3.4 - 5.0 gm/dL Low No Oct 1 [Mass/vol informati 2017 3:23 ume] in on in PM Serum or source Plasma data Alkaline 46 - 116 U/L Normal No Oct 1 phosphata informati 2017 3:23 se on in PM [Enzymati source c data activity/ volume] in Serum or Plasma Bilirubin 0.2 - 1.0 mg/dL Normal No Oct 1 .total informati 2017 3:23 [Mass/vol on in PM ume] in source Serum or data Plasma Urea 7 - 18 mg/dL Normal No Oct 1 nitrogen informati 2017 3:23 [Mass/vol on in PM ume] in source Serum or data Plasma Calcium 8.5 - mg/dL Low No Oct 1 [Mass/vol 10.1 informati 2017 3:23 ume] in on in PM Serum or source Plasma data Chloride 98 - 107 mmoL/L Normal No Oct 1 [Moles/vo informati 2017 3:23 lume] in on in PM Serum or source Plasma data Carbon 21.0 - mmoL/L Normal No Oct 1 dioxide, 32.0 informati 2017 3:23 total on in PM [Moles/vo source lume] in data Serum or Plasma Creatinin 0.55 - mg/dL Low No Oct 1 e 1.02 informati 2017 3:23 [Mass/vol on in PM ume] in source Serum or data Plasma Creatinin 50 - 200 ML/MIN Normal No Oct 1 e renal informati 2017 3:23 clearance on in PM source predicted data by Cockcroft -Gault formula Estimated 59- ML/MIN No REFERENCE Oct 1 informati RANGE: 2017 3:23 glomerula on in >60 PM r source ML/MIN/1. filtratio data 73 SQUARE n rate METERSIf (GF this patient is -A merican, then multiply theresult by 1.210. Globulin 1.3 - 3.2 gm/dL High No Mar 19 [Mass/vol informati 2016 3:23 ume] in on in PM Serum source data Glucose 74 - 106 mg/dL Normal No Mar 19 [Mass/vol informati 2016 3:23 ume] in on in PM Serum or source Plasma data Potassium 3.5 - 5.1 mmoL/L Normal No Mar 19 informati 2016 3:23 [Moles/vo on in PM lume] in source Serum or data Plasma Sodium 136 - 145 mmoL/L Normal No Mar 19 [Moles/vo informati 2016 3:23 lume] in on in PM Serum or source Plasma data Aspartate 15 - 37 U/L Normal No Mar 19 inform2016 3:23 aminotran on in PM sferase source [Enzymati data c activity/ volume] in Serum or Plasma Alanine 12 - 78 U/L Normal No Mar 19 aminotran informati 2016 3:23 sferase on in PM [Enzymati source c data activity/ volume] in Serum or Plasma Protein 6.4 - 8.2 gm/dL Low No Mar 19 [Mass/vol informati 2016 3:23 ume] in on in PM Serum or source Plasma data CBC W Auto Differential panel in Blood Observa Value Referen Units Interpr Notes Date tion ce etation Range Basophils 0 - 0.2 K/MM3 Normal No Mar 19 inform2016 3:23 [#/volume on in PM ] in source Blood by data Automated count Basophils 0.1 - 2.0 % Normal No Mar 19 informati 2016 3:23 leukocyte on in PM s in source Blood by data Automated count Eosinophi 0.0 - 0.4 K/mm3 Normal No Mar 19 ls informati 2016 3:23 [#/volume on in PM ] in source Blood by data Automated count Eosinophi 0.1 - % Normal No Mar 19 ls/100 12.0 informati 2016 3:23 leukocyte on in PM s in source Blood by data Automated count Granulocy 1.8 - 7.8 K/mm3 Normal No Mar 19 nikia informati 2016 3:23 [#/volume on in PM ] in source Blood by data Automated count Granulocy 37.0 - % Normal No Mar 19 nikia/100 80.0 informati 2016 3:23 leukocyte on in PM s in source Blood by data Automated count Hematocri 37.0 - % Low No Mar 19 t [Volume 47.0 informati 2016 3:23 on in PM Fraction] source of Blood data Hemoglobi 12.2 - g/dL Low No Mar 19 n 16.2 informati 2016 3:23 [Mass/vol on in PM ume] in source Blood data Lymphocyt 0.7 - 4.5 K/mm3 Normal No Mar 19 es informati 2016 3:23 [#/volume on in PM ] in source Unspecifi data ed specimen by Automated count Lymphocyt 10 - 50.0 % Normal No Mar 19 es informati 2016 3:23 [#/volume on in PM ] in source Unspecifi data ed specimen by Automated count Erythrocy 27 - 31.2 pg Normal No Mar 19 te mean informati 2016 3:23 corpuscul on in PM ar source hemoglobi data n [Entitic mass] Erythrocy 31.8 - g/dl Normal No Mar 19 te mean 35.4 informati 2016 3:23 corpuscul on in PM ar source hemoglobi data n concentra tion [Mass/vol ume] by Automated count Erythrocy 82.2 - fl Normal No Mar 19 te mean 97.8 informati 2016 3:23 corpuscul on in PM ar volume source [Entitic data volume] by Automated count Monocytes 0.1 - 1.0 K/mm3 Normal No Mar 19 informati 2016 3:23 [#/volume on in PM ] in source Blood by data Automated count Monocytes 1.7 - 9.3 % Normal No Mar 19 / informati 2016 3:23 leukocyte on in PM s in source Blood by data Automated count Platelet 7.4 - fl Normal No Mar 19 mean 10.4 informati 2016 3:23 volume on in PM [Entitic source volume] data in Blood by Automated count Platelets 142 - 424 K/mm3 No No Mar 19 informati informati 2016 3:23 [#/volume on in on in PM ] in source source Blood data data Erythrocy 4.2 - 5.4 M/mm3 Low No Mar 19 nikia informati 2016 3:23 [#/volume on in PM ] in source Amniotic data fluid Erythrocy 11.5 - % Normal No Mar 19 te 17.5 informati 2016 3:23 distribut on in PM ion width source [Entitic data volume] by Automated count Leukocyte 4.8 - K/MM3 Normal No Mar 19 s 10.8 informati 2016 3:23 [#/volume on in PM ] in source Blood data PT & aPTT panel in Platelet poor plasma by Coagulation assay Observa Value Referen Units Interpr Notes Date tion ce etation Range INR in 0.9 - 1.1 No Low INDICATIO Mar 19 Blood by informati N 2016 3:23 Coagulati on in PM on assay source INR data RANGETHER APY FOR DVT, PE, ATRIAL FIB; 2.0 - 3.0PROPHY LAXIS FOR VTETHERAP Y FOR MECHANICA L HEART 2.5 - 3.5VALVE; PREVENTIO N OF SYSTEMICE MBOLISM SECONDARY TO AMI Prothromb 9.4 - SECONDS Normal No Mar 19 in time 11.8 informati 2016 3:23 (PT) in on in PM Platelet source poor data plasma by Coagulati on assay Activated 23.6 - SECONDS Normal No Mar 19 partial 34.0 informati 2016 3:23 thrombpla on in PM stin time source (aPTT) data in Platelet poor plasma by Coagulati on assay [id number].placental [Presence] in Vaginal fluid Observa Value Referen Units Interpr Notes Date tion ce etation Range Alpha-1 NEGATIV No No No No Sep 10 -Microg E FOR informa informa informa informa 2017 lobulin RUPTURE tion in tion in tion in tion in 11:45 .placen source source source source PM isidro data data data data [Presen ce] in Vaginal fluid Urinalysis dipstick W Reflex Microscopic panel in Urine Observa Value Referen Units Interpr Notes Date tion ce etation Range Collected by nurse? Y Hold specimen in OE? N Appeara CLOUDY CLEAR No No No Sep 10 nce of informa informa informa 2017 Urine tion in tion in tion in 11:30 source source source PM data data data Amorpho 2+ NONE No No No Sep 10 informa informa informa 2017 sedimen tion in tion in tion in 11:30 t source source source PM [Presen data data data ce] in Urine sedimen t by Light microsc opy Bilirub NEGATIV NEG No No No Sep 10 in E informa informa informa 2017 [Presen tion in tion in tion in 11:30 ce] in source source source PM Urine data data data by Test strip Erythro 3+ NEG No Abnorma No Sep 10 cytes informa l informa 2017 [Presen tion in tion in 11:30 ce] in source source PM Urine data data Color YELLOW YELLOW No No No Sep 10 of informa informa informa 2017 Urine tion in tion in tion in 11:30 source source source PM data data data Glucose NEG No No No Sep 10 [Mass/vol informati informati informati 2017 ume] in on in on in on in 11:30 PM Urine by source source source Test data data data strip Ketones TRACE NEG mg/dL Abnorma No Sep 10 l informa 2017 [Presen tion in 11:30 ce] in source PM Urine data by Automat ed test strip Mucus TRACE NEG No Abnorma No Sep 10 [Presen informa l informa 2017 ce] in tion in tion in 11:30 Urine source source PM sedimen data data t by Light microsc opy Mucus TRACE OCC No No No Sep 10 [Presen informa informa informa 2016 ce] in tion in tion in tion in 11:30 Urine source source source PM sedimen data data data t by Light microsc opy Nitrite NEGATIV NEG No No No Sep 10 E informa informa informa 2017 [Presen tion in tion in tion in 11:30 ce] in source source source PM Urine data data data by Test strip pH of 5.0 - 8.5 No Normal No Sep 10 Urine informati informati 2017 on in on in 11:30 PM source source data data Protein NEG mg/dL High No Sep 10 [Mass/vol informati 2017 ume] in on in 11:30 PM Urine by source Automated data test strip Erythro 5-10 0 rbc/hpf No No Sep 10 cytes informa informa 2017 [Presen tion in tion in 11:30 ce] in source source PM Urine data data sedimen t by Light microsc opy Specific 1.005 - No Normal No Sep 10 gravity 1.030 informati informati 2017 of Urine on in on in 11:30 PM source source data data Epithel 50-100 0 - 5 #/hpf No No Sep 10 ial informa informa 2017 cells.s tion in tion in 11:30 quamous source source PM data data [Presen ce] in Urine sedimen t by Microsc opy high power field Urobili 2.0 NEG E.U./dL No No Sep 10 nogen informa informa 2017 [Presen tion in tion in 11:30 ce] in source source PM Urine data data by Test strip Leukocy [3 O wbc/hpf No No Sep 10 nikia wbc/hpf informa informa 2017 [#/volu ; 5 tion in tion in 11:30 me] in wbc/hpf source source PM Urine ] data data Urinalysis dipstick W Reflex Microscopic panel in Urine Observa Value Referen Units Interpr Notes Date tion ce etation Range Collected by nurse? Y Hold specimen in OE? N Appeara CLOUDY CLEAR No No No Sep 10 nce of informa informa informa 2017 Urine tion in tion in tion in 11:30 source source source PM data data data Bilirub NEGATIV NEG No No No Sep 10 in E informa informa informa 2016 [Presen tion in tion in tion in 11:30 ce] in source source source PM Urine data data data by Test strip Erythro 3+ NEG No Abnorma No Sep 10 cytes informa l informa 2016 [Presen tion in tion in 11:30 ce] in source source PM Urine data data Color YELLOW YELLOW No No No Sep 10 of informa informa informa 2017 Urine tion in tion in tion in 11:30 source source source PM data data data Glucose NEG No No No Sep 10 [Mass/vol informati informati informati 2017 ume] in on in on in on in 11:30 PM Urine by source source source Test data data data strip Ketones TRACE NEG mg/dL Abnorma No Sep 10 l informa 2017 [Presen tion in 11:30 ce] in source PM Urine data by Automat ed test strip Mucus TRACE NEG No Abnorma No Sep 10 [Presen informa l informa 2017 ce] in tion in tion in 11:30 Urine source source PM sedimen data data t by Light microsc opy Nitrite NEGATIV NEG No No No Sep 10 E informa informa informa 2017 [Presen tion in tion in tion in 11:30 ce] in source source source PM Urine data data data by Test strip pH of 5.0 - 8.5 No Normal No Sep 10 Urine informati informati 2017 on in on in 11:30 PM source source data data Protein NEG mg/dL High No Sep 10 [Mass/vol informati 2017 ume] in on in 11:30 PM Urine by source Automated data test strip Specific 1.005 - No Normal No Sep 10 gravity 1.030 informati informati 2017 of Urine on in on in 11:30 PM source source data data Urobili 2.0 NEG E.U./dL No No Sep 10 nogen informa informa 2017 [Presen tion in tion in 11:30 ce] in source source PM Urine data data by Test strip CHLAMYDIA AND GONORRHEA TESTING Observa Value Referen Units Interpr Notes Date tion ce etation Range COLLECT AH/GENP No No No No Apr 01 OR ROBE informa informa informa informa 2016 tion in tion in tion in tion in 8:15 AM source source source source data data data data ETHNICI WHITE, No No No No Apr 01 TY NON-HIS informa informa informa informa 2016 PANIC tion in tion in tion in tion in 8:15 AM source source source source data data data data KIT 12-31-2 No No No No Apr 01 EXPIRAT 016 informa informa informa informa 2016 ION tion in tion in tion in tion in 8:15 AM DATE source source source source data data data data SYMPTOM NO No No No No Apr 01 S informa informa informa informa 2016 tion in tion in tion in tion in 8:15 AM source source source source data data data data REASON FAMILY No No No No Apr 01 FOR PLANNIN informa informa informa informa 2016 REQUEST G ECP tion in tion in tion in tion in 8:15 AM VISIT source source source source data data data data SPECIME URINE No No No No Apr 01 N informa informa informa informa 2016 SOURCE tion in tion in tion in tion in 8:15 AM source source source source data data data data PREGNAN NO No No No No Apr 01 T informa informa informa informa 2016 tion in tion in tion in tion in 8:15 AM source source source source data data data data CHART N/A No No No No Apr 01 NUMBER informa informa informa informa 2016 tion in tion in tion in tion in 8:15 AM source source source source data data data data Chlamyd NEGATIV No No No NEGATIV Apr 01 ia E informa informa informa E 2016 trachom tion in tion in tion in RESULT= 8:15 AM atis source source source WITHIN rRNA data data data NORMAL [Presen ce] in LIMITSP Unspeci OSITIVE fied specime RESULT= n by Probe & ABNORMA target LEQUIVO ADRIÁN amplifi RESULT= cation method INDETER MINATEU NSATISF ACTORY RESULT= INVALID Neisser NEGATIV No No No NEGATIV Apr 01 ia E informa informa informa E 2016 gonorrh tion in tion in tion in RESULT= 8:15 AM oeae source source source WITHIN rRNA data data data NORMAL [Presen ce] in LIMITSP Unspeci OSITIVE fied specime RESULT= n by Probe & ABNORMA target LEQUIVO ADRIÁN amplifi RESULT= cation method INDETER MINATEU NSATISF ACTORY RESULT= INVALID THE APTIMA COMBO 2 ASSAY IS NOT INTENDE D FOR THE EVALUAT ION OF SUSPECT EDSEXUA L ABUSE OR FOR OTHER MEDICO- LEGAL INDICAT IONS. FOR THOSE PATIENT S FORWHOM A FALSE POSITIV E RESULT MAY HAVE ADVERSE PSYCHO- SOCIAL IMPACT, THE CD[facility] MMENDS RETESTI NG.\.br \This report contain s patient informa tion that must be protect ed in accorda nce with the Health Insuran ce Portabi lity and Account ability Act. CHLAMYDIA AND GONORRHEA TESTING Observa Value Referen Units Interpr Notes Date tion ce etation Range COLLECT AH/GENP No No No No Apr 01 OR ROBE informa informa informa informa 2016 tion in tion in tion in tion in 8:15 AM source source source source data data data data ETHNICI WHITE, No No No No Apr 01 TY NON-HIS informa informa informa informa 2016 PANIC tion in tion in tion in tion in 8:15 AM source source source source data data data data KIT 12-31-2 No No No No Apr 01 EXPIRAT 016 informa informa informa informa 2016 ION tion in tion in tion in tion in 8:15 AM DATE source source source source data data data data SYMPTOM NO No No No No Apr 01 S informa informa informa informa 2016 tion in tion in tion in tion in 8:15 AM source source source source data data data data REASON FAMILY No No No No Apr 01 FOR GEORGETTE informa informa informa informa 2016 REQUEST G ECP tion in tion in tion in tion in 8:15 AM VISIT source source source source data data data data SPECIME URINE No No No No Apr 01 N informa informa informa informa 2016 SOURCE tion in tion in tion in tion in 8:15 AM source source source source data data data data PREGNAN NO No No No No Apr 01 T informa informa informa informa 2016 tion in tion in tion in tion in 8:15 AM source source source source data data data data CHART N/A No No No No Apr 01 NUMBER informa informa informa informa 2016 tion in tion in tion in tion in 8:15 AM source source source source data data data data Chlamyd Pending No No No No Apr 01 ia informa informa informa informa 2016 trachom tion in tion in tion in tion in 8:15 AM atis source source source source rRNA data data data data [Presen ce] in Unspeci fied specime n by Probe & target amplifi cation method Neisser Pending No No No \.br\Apr 01 ia informa informa informa is 2016 gonorrh tion in tion in tion in report 8:15 AM oeae source source source contain rRNA data data data s [Presen patient ce] in Unspeci informa fied tion specime that n by must be Probe & target protect ed in amplifi accorda cation nce method with the Health Insuran ce Portabi lity and Account ability Act. CHLAMYDIA AND GONORRHEA TESTING Observa Value Referen Units Interpr Notes Date tion ce etation Range COLLECT PATIENT No No No No Jan 15 OR /J.MOSL informa informa informa informa 2013 EY RN tion in tion in tion in tion in 11:00 source source source source AM data data data data ETHNICI WHITE, No No No No Jan 15 TY NON-HIS informa informa informa informa 2013 PANIC tion in tion in tion in tion in 11:00 source source source source AM data data data data KIT 03-18- No No No No Jan 15 EXPIRAT 013 informa informa informa informa 2013 ION tion in tion in tion in tion in 11:00 DATE source source source source AM data data data data SYMPTOM NO No No No No Jan 15 S informa informa informa informa 2013 tion in tion in tion in tion in 11:00 source source source source AM data data data data REASON REVISIT No No No No Jan 15 FOR /ANNUAL informa informa informa informa 2013 REQUEST FAMILY tion in tion in tion in tion in 11:00 source source source source AM PLANNIN data data data data G VISIT SPECIME URINE No No No No Jan 15 N informa informa informa informa 2013 SOURCE tion in tion in tion in tion in 11:00 source source source source AM data data data data PREGNAN NO No No No No Jan 15 T informa informa informa informa 2013 tion in tion in tion in tion in 11:00 source source source source AM data data data data CHART NA No No No No Jan 15 NUMBER informa informa informa informa 2013 tion in tion in tion in tion in 11:00 source source source source AM data data data data Chlamyd POSITIV No No No NEGATIV Jan 15 ia E informa informa informa E 2013 trachom tion in tion in tion in RESULT= 11:00 atis source source source WITHIN AM rRNA data data data NORMAL [Presen ce] in LIMITSP Unspeci OSITIVE fied specime RESULT= n by Probe & ABNORMA target LEQUIVO ADRIÁN amplifi RESULT= cation method INDETER MINATEU NSATISF ACTORY RESULT= INVALID Neisser NEGATIV No No No NEGATIV Jan 15 ia E informa informa informa E 2013 gonorrh tion in tion in tion in RESULT= 11:00 oeae source source source WITHIN AM rRNA data data data NORMAL [Presen ce] in LIMITSP Unspeci OSITIVE fied specime RESULT= n by Probe & ABNORMA target LEQUIVO ADRIÁN amplifi RESULT= cation method INDETER MINATEU NSATISF ACTORY RESULT= INVALID THE APTIMA COMBO 2 ASSAY IS NOT INTENDE D FOR THE EVALUAT ION OF SUSPECT EDSEXUA L ABUSE OR FOR OTHER MEDICO- LEGAL INDICAT IONS. FOR THOSE PATIENT S FORWHOM A FALSE POSITIV E RESULT MAY HAVE ADVERSE PSYCHO- SOCIAL IMPACT, [facility].\.br \This report contain s patient informa tion that must be protect ed in accorda nce with the Health Insuran ce Portabi lity and Account ability Act. CHLAMYDIA AND GONORRHEA TESTING Observa Value Referen Units Interpr Notes Date tion ce etation Range COLLECT PATIENT No No No No Jan 15 OR /JMARIELLA informa informa informa informa 2012 EY RN tion in tion in tion in tion in 11:00 source source source source AM data data data data ETHNICI WHITE, No No No No Jan 15 TY NON-HIS informa informa informa informa 2013 PANIC tion in tion in tion in tion in 11:00 source source source source AM data data data data KIT 03-18- No No No No Jan 15 EXPIRAT 013 informa informa informa informa 2013 ION tion in tion in tion in tion in 11:00 DATE source source source source AM data data data data SYMPTOM NO No No No No Jan 15 S informa informa informa informa 2013 tion in tion in tion in tion in 11:00 source source source source AM data data data data REASON REVISIT No No No No Jan 15 FOR /ANNUAL informa informa informa informa 2013 REQUEST FAMILY tion in tion in tion in tion in 11:00 source source source source AM PLANNIN data data data data G VISIT SPECIME URINE No No No No Jan 15 N informa informa informa informa 2013 SOURCE tion in tion in tion in tion in 11:00 source source source source AM data data data data PREGNAN NO No No No No Jan 15 T informa informa informa informa 2013 tion in tion in tion in tion in 11:00 source source source source AM data data data data CHART NA No No No No [place] 30 NUMBER informa informa informa informa 2013 tion in tion in tion in tion in 11:00 source source source source AM data data data data Chlamyd Pending No No No No Jan 15 ia informa informa informa informa 2013 trachom tion in tion in tion in tion in 11:00 atis source source source source AM rRNA data data data data [Presen ce] in Unspeci fied specime n by Probe & target amplifi cation method Neisser Pending No No No \.br\Jan 15 ia informa informa informa is 2013 gonorrh tion in tion in tion in report 11:00 oeae source source source contain AM rRNA data data data s [Presen patient ce] in Unspeci informa fied tion specime that n by must be Probe & target protect ed in amplifi accorda cation nce method with the Health Insuran ce Portabi lity and Account ability Act. CHLAMYDIA AND GONORRHEA TESTING Observa Value Referen Units Interpr Notes Date tion ce etation Range COLLECT NA No No No No Jan 30 OR informa informa informa informa 2012 tion in tion in tion in tion in 4:00 PM source source source source data data data data ETHNICI WHITE, No No No No Jan 30 TY NON-HIS informa informa informa informa 2012 PANIC tion in tion in tion in tion in 4:00 PM source source source source data data data data KIT --13 No No No No Jan 30 EXPIRAT informa informa informa informa 2012 ION tion in tion in tion in tion in 4:00 PM DATE source source source source data data data data SYMPTOM NO No No No No Jan 30 S informa informa informa informa 2012 tion in tion in tion in tion in 4:00 PM source source source source data data data data REASON REVISIT No No No No Jan 30 FOR /ANNUAL informa informa informa informa 2012 REQUEST FAMILY tion in tion in tion in tion in 4:00 PM source source source source PLANNIN data data data data G VISIT SPECIME URINE No No No No Jan 30 N informa informa informa informa 2012 SOURCE tion in tion in tion in tion in 4:00 PM source source source source data data data data PREGNAN NO No No No No Jan 30 T informa informa informa informa 2011 tion in tion in tion in tion in 4:00 PM source source source source data data data data CHART 402-45- No No No No Jan 30 NUMBER [id number] informa informa informa informa 2012 tion in tion in tion in tion in 4:00 PM source source source source data data data data Chlamyd NEGATIV No No No NEGATIV Jan 30 ia E informa informa informa E 2012 trachom tion in tion in tion in RESULT= 4:00 PM atis source source source WITHIN rRNA data data data NORMAL [Presen ce] in LIMITSP Unspeci OSITIVE fied specime RESULT= n by Probe & ABNORMA target LEQUIVO ADRIÁN amplifi RESULT= cation method INDETER MINATEU NSATISF ACTORY RESULT= INVALID Neisser NEGATIV No No No NEGATIV Jan 30 ia E informa informa informa E 2012 gonorrh tion in tion in tion in RESULT= 4:00 PM oeae source source source WITHIN rRNA data data data NORMAL [Presen ce] in LIMITSP Unspeci OSITIVE fied specime RESULT= n by Probe & ABNORMA target LEQUIVO ADRIÁN amplifi RESULT= cation method INDETER MINATEU NSATISF ACTORY RESULT= INVALID THE APTIMA COMBO 2 ASSAY IS NOT INTENDE D FOR THE EVALUAT ION OF SUSPECT EDSEXUA L ABUSE OR FOR OTHER MEDICO- LEGAL INDICAT IONS. FOR THOSE PATIENT S FORWHOM A FALSE POSITIV E RESULT MAY HAVE ADVERSE PSYCHO- SOCIAL IMPACT, [facility] RET[facility] NG.\.br \This report contain s patient informa tion that must be protect ed in accorda nce with the Health Insuran ce Portabi lity and Account ability Act. CHLAMYDIA AND GONORRHEA TESTING Observa Value Referen Units Interpr Notes Date tion ce etation Range COLLECT NA No No No No Jan 30 OR informa informa informa informa 2011 tion in tion in tion in tion in 4:00 PM source source source source data data data data ETHNICI WHITE, No No No No Jan 30 TY NON-HIS informa informa informa informa 2011 PANIC tion in tion in tion in tion in 4:00 PM source source source source data data data data KIT 4-30-13 No No No No Jan 30 EXPIRAT informa informa informa informa 2012 ION tion in tion in tion in tion in 4:00 PM DATE source source source source data data data data SYMPTOM NO No No No No Jan 30 S informa informa informa informa 2012 tion in tion in tion in tion in 4:00 PM source source source source data data data data REASON REVISIT No No No No Jan 30 FOR /ANNUAL informa informa informa informa 2012 REQUEST FAMILY tion in tion in tion in tion in 4:00 PM source source source source PLANNIN data data data data G VISIT SPECIME URINE No No No No Jan 30 N informa informa informa informa 2012 SOURCE tion in tion in tion in tion in 4:00 PM source source source source data data data data PREGNAN NO No No No No Jan 30 T informa informa informa informa 2012 tion in tion in tion in tion in 4:00 PM source source source source data data data data CHART [id number] No No No Jan 30 NUMBER [id number] informa informa informa informa 2012 tion in tion in tion in tion in 4:00 PM source source source source data data data data Chlamyd Pending No No No No Jan 30 ia informa informa informa informa 2012 trachom tion in tion in tion in tion in 4:00 PM atis source source source source rRNA data data data data [Presen ce] in Unspeci fied specime n by Probe & target amplifi cation method Neisser Pending No No No \.br\Jan 30 ia informa informa informa is 2012 gonorrh tion in tion in tion in report 4:00 PM oeae source source source contain rRNA data data data s [Presen patient ce] in Unspeci informa fied tion specime that n by must be Probe & target protect ed in amplifi accorda cation nce method with the Health Insuran ce Portabi lity and Account ability Act.
--- OUTSIDE RECORDS SUMMARY | 2017-03-29 22:00 | External Medical Summary Rpt ---
[...] Platelet poor plasma by Coagulati on assay Olsas-1-Iwazotyhwzbhx.placental [Presence] in Vaginal fluid Observa Value Referen [...] MAY HAVE ADVERSE PSYCHO- SOCIAL IMPACT, [facility].\.br \This report contain s [...] MAY HAVE ADVERSE PSYCHO- SOCIAL IMPACT, [facility].\.br \This report contain s [...]
== END 2017-03-19 16:41 | disposition home or self-care (01) ==
LOC: ER 13:41
PROVIDERS: General Practice
DX: R04.0 Epistaxis (principal); E88.09 Other disorders of plasma-protein metabolism, not elsewhere classified; J01.00 Acute maxillary sinusitis, unspecified; Z34.03 Encounter for supervision of normal first pregnancy, third trimester; F17.210 Nicotine dependence, cigarettes, uncomplicated; Z88.1 Allergy status to other antibiotic agents; Z88.6 Allergy status to analgesic agent

== ENCOUNTER 2017-04-26 16:22 | Outpatient (CLI) | payer MEDICAID ==
[~2017-04-26] VITALS: Ht 154.9 cm; Wt 72.6 kg
[~2017-04-26 16:22] MED LIST changes: +AMOXICOT500 MG PO; +PRENATAL1 TA1 PO
[2017-04-26 16:35] VITALS: BP 128/81
[2017-04-26] MEDS ORDERED: FERROUS SULFAT325 M2 PO (16:39)
== END 2017-04-26 18:00 | disposition home or self-care (01) ==
LOC: OB 16:22 → OBOUT 16:22
DX: O60.03 Preterm labor without delivery, third trimester (principal); Z3A.36 36 weeks gestation of pregnancy

== ENCOUNTER 2017-04-27 16:36 | Outpatient (CLI) | payer MEDICAID ==
[~2017-04-27] VITALS: Ht 162.6 cm; Wt 81.6 kg
[~2017-04-27 16:36] MED LIST changes: +FERROUS SULFAT325 M2 PO
[2017-04-27 16:52] VITALS: BP 110/85
== END 2017-04-27 16:52 | disposition home or self-care (01) ==
LOC: OBOUT 16:36 → OB 16:37 → OBOUT 16:52
DX: O60.03 Preterm labor without delivery, third trimester (principal); Z3A.36 36 weeks gestation of pregnancy

== ENCOUNTER 2017-05-01 14:15 | Outpatient (CLI) | payer MEDICAID ==
[~2017-05-01] VITALS: Ht 157.5 cm; Wt 73.0 kg
[2017-05-01 14:40] VITALS: BP 131/85
[2017-05-01 14:47] LABS: URINE BILIRUBIN - DIPSTICK NEGATIVE (NEG); URINE BLOOD 3+ (NEG)
[2017-05-01 15:08] LABS: AMPHETAMINES/METAMPHETAMINES NEGATIVE ng/mL (<1000)
[2017-05-01 15:23] LABS: URINE SQUAMOUS CELLS OCC #/hpf (0-5)
== END 2017-05-01 17:12 | disposition home or self-care (01) ==
LOC: OBOUT 14:15 → OB 14:16 → OBOUT 17:12
PROVIDERS: Nurse Practitioner Obstetrics & Gynecology
DX: O60.03 Preterm labor without delivery, third trimester (principal); Z3A.36 36 weeks gestation of pregnancy

== ENCOUNTER 2017-05-12 22:38 | Outpatient (CLI) | payer MEDICAID ==
[~2017-05-12] VITALS: Ht 154.9 cm; Wt 72.6 kg
[2017-05-12 22:50] VITALS: BP 127/90
== END 2017-05-12 23:55 | disposition home or self-care (01) ==
LOC: OBOUT 22:38 → OB 22:39 → OBOUT 23:55
DX: O62.9 Abnormality of forces of labor, unspecified (principal); Z3A.37 37 weeks gestation of pregnancy; R51 Headache

== ENCOUNTER 2017-05-16 17:16 | Outpatient (CLI) | payer MEDICAID ==
[~2017-05-16] VITALS: Ht 154.9 cm; Wt 72.6 kg
[2017-05-16 17:34] VITALS: BP 133/82
[2017-05-16] MEDS ORDERED: TYLENOL COLD MU PO (17:42)
[2017-05-16 18:32] LABS: URINE BLOOD 3+ (NEG)
[2017-05-16 18:36] LABS: URINE BILIRUBIN - DIPSTICK 1+ (NEG)
[2017-05-16 18:51] LABS: AMPHETAMINES/METAMPHETAMINES NEGATIVE ng/mL (<1000)
[2017-05-16 19:09] LABS: URINE SQUAMOUS CELLS 20-50 #/hpf (0-5)
== END 2017-05-16 21:12 | disposition home or self-care (01) ==
LOC: OBOUT 17:16 → OB 17:17 → OBOUT 21:12
PROVIDERS: Obstetrics & Gynecology
DX: O26.93 Pregnancy related conditions, unspecified, third trimester (principal); Z3A.38 38 weeks gestation of pregnancy; R05 Cough; R07.81 Pleurodynia; M79.1 Myalgia

== ENCOUNTER 2017-05-18 13:56 | Outpatient (CLI) | payer MEDICAID ==
[~2017-05-18] VITALS: Ht 154.9 cm; Wt 75.8 kg
[~2017-05-18 13:56] MED LIST changes: +TYLENOL COLD MU PO
[2017-05-18 14:20] VITALS: BP 118/88
[2017-05-18 14:28] LABS: URINE BLOOD 3+ (NEG)
[2017-05-18 14:39] LABS: AMPHETAMINES/METAMPHETAMINES NEGATIVE ng/mL (<1000)
[2017-05-18 14:42] LABS: URINE BILIRUBIN - DIPSTICK 1+ (NEG)
[2017-05-18 15:07] LABS: URINE SQUAMOUS CELLS TNTC #/hpf (0-5)
== END 2017-05-18 15:30 | disposition home or self-care (01) ==
LOC: OBOUT 13:56 → OB 13:56 → OBOUT 15:30
PROVIDERS: Nurse Practitioner Obstetrics & Gynecology
DX: O60.03 Preterm labor without delivery, third trimester (principal); Z3A.38 38 weeks gestation of pregnancy